=== PATIENT | male | born 1945 | race Caucasian/White ===

== ENCOUNTER 2024-04-16 10:58 | Emergency (ER) | payer MEDICARE, SELFPAY ==
[2024-04-16] VITALS (30 sets, daily range): BP systolic 104–176; BP diastolic 55–97; PULSE 48–89; RESP 14–26; TEMP 36.6; O2SAT 94–100
--- NOTE | 2024-04-16 | DI.RAD.S_ITS ---
PROCEDURE: XR HIP W PEL IF DONE LT 2V INDICATIONS: POST REDUCTION HIP DISLOCATION TECHNIQUE: AP pelvis with lateral view(s) of the left hip(s). COMPARISON: [facility], [place], XR HIP W PEL IF DONE LT 2V, 04/16/2024, 11:34. FINDINGS: Bones: Interval reduction previously dislocated left hip arthroplasty. There is good anatomic alignment. No visualized prosthetic or osseous fracture. Stable appearance of right hip arthroplasty. Soft tissues: The visualized bowel gas pattern is normal. No suspicious soft tissue calcifications. IMPRESSION: Interval reduction with good anatomic alignment of left hip arthroplasty. Dictated by: Yudelka Hough M.D. on 04/16/2024 at 13:59 Approved by: Yudelka Hough M.D. on 04/16/2024 at 14:00
--- NOTE | 2024-04-16 11:27 | DI.RAD.S_ITS ---
PROCEDURE: XR HIP W PEL IF DONE LT 2V INDICATIONS: hip dislocation TECHNIQUE: AP pelvis with lateral view(s) of the left hip(s). COMPARISON: None. FINDINGS: Bones: Lateral dislocation of left hip arthroplasty. No visualized hardware fracture. Right hip arthroplasty is intact. Soft tissues: The visualized bowel gas pattern is normal. No suspicious soft tissue calcifications. IMPRESSION: Lateral dislocation left hip arthroplasty Dictated by: Yudelka Hough M.D. on 04/16/2024 at 12:12 Approved by: Yudelka Hough M.D. on 04/16/2024 at 12:13
--- NOTE | 2024-04-16 12:00 | ED_ITS ---
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 Patient states his left hip he believes is dislocated. He has dislocated it 5 times total most recently was about 5 years ago. He did have a revision in the which seemed to help. His 1st dislocation was in the after his initial hip replacement. Patient states he was crawling on the ground to check the levels of a water tank when he states he just moved his leg in the wrong direction and felt it pop out. This was around 8:00 a.m.. He denies any other trauma or injury. He states he can move his foot and ankle without any issue. No numbness tingling or weakness. States feels very similar to priors. Patient states he is not on any daily medications. Denies any drug allergies. No tobacco, occasional alcohol, none recently, no recreational drugs. He has had procedural sedation in the past states he is tolerated it well. Patient denies any other symptoms or injuries. He was on [place] but lives in [place], [place]. He does not follow regularly with Orthopedic surgery anymore. Patient was trance referred via airlift from [place]. He states he received medications EN route in his comfortable at this time. States last intake was about 7 or 8:00 a.m. this morning had coffee and a roll. Related Data Allergies Allergy/AdvReac Type Severity Reaction Status Date / Time No Known Drug Allergies Allergy Verified 04/16/24 11:31 Review of Systems Review of Systems ROS Unobtainable: All systems reviewed & are unremarkable except as noted in HPI and below Patient History Social History Smoking Status: Never smoker Smoking Status: Never smoker alcohol intake frequency: holidays/special occasions only Substance Use Type: does not use Exam Narrative Exam Narrative: GENERAL: Alert and oriented x three, well-appearing elderly male in mild distress HEENT: Head normocephalic, atraumatic, EOMI, pupils reactive, face symmetric, moist mucous membranes NECK: Supple, full range of motion CARDIOVASCULAR: Regular rate and rhythm without murmurs, rubs or gallops. RESPIRATORY: Breath sounds equal bilaterally, no wheezes rales or rhonchi. No tachypnea or accessory muscle use. ABDOMEN: Soft, nontender. Normoactive bowel sounds all 4 quadrants. No guarding or rebound, rigidity, no mass : No CVA tenderness EXTREMITIES: Normal range of motion except at the left hip, patient is shortened and internally rotated, no other bony tenderness of the lower leg. Has normal dorsiflexion plantar flexion normal sensation throughout the left lower extremity. 2+ pulses bilateral lower extremities. Normal range of motion of bilateral upper extremities. Neurovascularly intact NEUROLOGICAL: Cranial nerves II through XII grossly intact. Moving all extremities. SKIN: Warm, dry, no petechiae, no rashes or lesions. Initial Vital Signs Initial Vital Signs: Vital Signs Pulse Rate 59 L 04/16/24 11:03 Pulse Oximetry 97 04/16/24 11:03 Procedures Orthopedic Joint Reduction Joint #1: Time Out Performed: Yes Side: left Joint Reduction Location: hip Analgesia: procedural sedation Technique used: other (hip flexion with internal rotation.) Post-reduction neuro exam: intact and no change Post-reduction vascular: intact and no change Post Reduction X-Ray Obtained: Yes Post Reduction X-Ray Results: reduced Splint Applied: Yes (knee immobilizer) Patient Tolerated Procedure: Well and No complications Procedural Sedation Consent signed: Yes Time out performed: Yes Indication: fracture/dislocation reduction ASA Class: II Mallampati Airway Classification: Class II Time of Last PO Intake: 08:00 Preparation: monitoring engineer applied, pulse oximeter, capnometry used, supplemental O2 applied, suction/airway equipment at bedside and IV secured IV Propofol dose (mg): 100 ED Sedation Level: Moderate (Concious) Patient Tolerated Procedure: Well Complications: hypoventilation Interventions: Airway repositioned and Assist by BVM Course Orders Ordered: ED Orders 04/16/24 11:27 XR hip w pel if done LT 2V Stat Discontinued Medications Propofol (Propofol 200 Mg/20 Ml Vial) 100 mg IV NOW ONE Stop: 04/16/24 12:22 Last Admin: 04/16/24 12:50 Dose: 100 mg Documented By: ALEX Vital Signs Vital signs: Vital Signs - 8 hr 04/16/24 11:03 04/16/24 11:04 04/16/24 11:04 Temperature Pulse Rate 59 L 59 L Respiratory Rate Blood Pressure 143/68 H Pulse Oximetry 97 96 Oxygen Delivery Method Oxygen Flow Rate 04/16/24 11:20 04/16/24 11:30 04/16/24 11:30 Temperature 97.8 F Pulse Rate 58 L 56 L Respiratory Rate 18 14 Blood Pressure 143/68 H 131/66 Pulse Oximetry 96 95 Oxygen Delivery Method Room Air Room Air Oxygen Flow Rate 04/16/24 12:00 04/16/24 12:22 04/16/24 12:22 Temperature Pulse Rate 60 55 L Respiratory Rate 20 18 Blood Pressure 130/65 Pulse Oximetry 96 97 Oxygen Delivery Method Oxygen Flow Rate 04/16/24 12:25 04/16/24 12:25 04/16/24 12:30 Temperature Pulse Rate 53 L Respiratory Rate 18 Blood Pressure 137/75 136/72 Pulse Oximetry 98 Oxygen Delivery Method Oxygen Flow Rate 04/16/24 12:30 04/16/24 12:35 04/16/24 12:35 Temperature Pulse Rate 48 L 53 L Respiratory Rate 23 17 Blood Pressure 130/70 Pulse Oximetry 98 99 Oxygen Delivery Method Oxygen Flow Rate 04/16/24 12:40 04/16/24 12:40 04/16/24 12:45 Temperature Pulse Rate 52 L 56 L Respiratory Rate 14 21 Blood Pressure 137/77 Pulse Oximetry 99 99 Oxygen Delivery Method Oxygen Flow Rate 04/16/24 12:45 04/16/24 12:50 04/16/24 12:50 Temperature Pulse Rate 58 L Respiratory Rate Blood Pressure 141/75 H 141/97 H Pulse Oximetry 99 Oxygen Delivery Method Nasal Cannula Oxygen Flow Rate 2 04/16/24 12:54 04/16/24 12:54 04/16/24 12:55 Temperature Pulse Rate 54 L Respiratory Rate 17 Blood Pressure 126/64 121/66 Pulse Oximetry 100 Oxygen Delivery Method Oxygen Flow Rate 04/16/24 12:55 04/16/24 13:00 04/16/24 13:00 Temperature Pulse Rate 56 L 54 L Respiratory Rate 18 17 Blood Pressure 115/57 L Pulse Oximetry 100 95 Oxygen Delivery Method Oxygen Flow Rate 04/16/24 13:02 04/16/24 13:05 04/16/24 13:05 Temperature Pulse Rate 62 59 L Respiratory Rate 16 21 Blood Pressure 115/60 Pulse Oximetry 97 Oxygen Delivery Method Oxygen Flow Rate 04/16/24 13:10 04/16/24 13:10 04/16/24 13:15 Temperature Pulse Rate 56 L 56 L Respiratory Rate 20 23 Blood Pressure 119/62 Pulse Oximetry 94 96 Oxygen Delivery Method Oxygen Flow Rate 04/16/24 13:15 04/16/24 13:20 04/16/24 13:20 Temperature Pulse Rate 55 L Respiratory Rate 26 H Blood Pressure 121/63 108/68 Pulse Oximetry 98 Oxygen Delivery Method Room Air Oxygen Flow Rate 04/16/24 13:25 04/16/24 13:25 04/16/24 13:30 Temperature Pulse Rate 54 L Respiratory Rate 21 Blood Pressure 114/64 133/59 L Pulse Oximetry 98 Oxygen Delivery Method Oxygen Flow Rate 04/16/24 13:30 04/16/24 13:35 04/16/24 13:35 Temperature Pulse Rate 54 L 53 L Respiratory Rate 21 23 Blood Pressure 115/56 L Pulse Oximetry 97 97 Oxygen Delivery Method Oxygen Flow Rate 04/16/24 13:41 04/16/24 13:41 04/16/24 13:45 Temperature Pulse Rate 51 L Respiratory Rate 19 Blood Pressure 119/57 L 104/61 Pulse Oximetry 98 Oxygen Delivery Method Oxygen Flow Rate 04/16/24 13:45 04/16/24 13:51 04/16/24 13:51 Temperature Pulse Rate 89 54 L Respiratory Rate 20 18 Blood Pressure 176/68 H Pulse Oximetry 94 98 Oxygen Delivery Method Oxygen Flow Rate 04/16/24 13:56 04/16/24 13:56 04/16/24 14:00 Temperature Pulse Rate 54 L Respiratory Rate 17 Blood Pressure 114/55 L 114/65 Pulse Oximetry 98 Oxygen Delivery Method Oxygen Flow Rate 04/16/24 14:00 04/16/24 14:05 04/16/24 14:05 Temperature Pulse Rate 54 L 52 L Respiratory Rate 19 14 Blood Pressure 116/62 Pulse Oximetry 96 96 Oxygen Delivery Method Oxygen Flow Rate 04/16/24 14:10 04/16/24 14:10 Temperature Pulse Rate 53 L Respiratory Rate 19 Blood Pressure 116/68 Pulse Oximetry 98 Oxygen Delivery Method Oxygen Flow Rate MDM - Extremity Injury (Lower) Imaging Data Extremity x-ray #1: Radiologist's Impression: [address] [address] XRay Report Signed Patient: Tyrone Moreland MR#: [id number] : 1945 Acct:[id number] Age/Sex: 78 / M Date of Service: 04/16/24 Loc: ED Accession Number: [id number] Procedure: XR hip w pel if done LT 2V Ordering Provider: Ai Gant D.O. PROCEDURE: XR HIP W PEL IF DONE LT 2V INDICATIONS: hip dislocation TECHNIQUE: AP pelvis with lateral view(s) of the left hip(s). COMPARISON: None. FINDINGS: Bones: Lateral dislocation of left hip arthroplasty. No visualized hardware fracture. Right hip arthroplasty is intact. Soft tissues: The visualized bowel gas pattern is normal. No suspicious soft tissue calcifications. IMPRESSION: Lateral dislocation left hip arthroplasty Dictated by: Yudelka Hough M.D. on 04/16/2024 at 12:12 Approved by: Yudelka Hough M.D. on 04/16/2024 at 12:13 post reduc: Radiologist's Impression: Close Hip X-Ray (Signed) Yudelka Hough - 04/16/24 Hip X-Ray (Signed) Yudelka Hough - 04/16/24 Launch?[place] [address] XRay Report Signed Patient: Tyrone Moreland MR#: [id number] : 1945 Acct:[id number] Age/Sex: 78 / M Date of Service: 04/16/24 Loc: ED Accession Number: [id number] Procedure: XR hip w pel if done LT 2V Ordering Provider: Ai Gant D.O. PROCEDURE: XR HIP W PEL IF DONE LT 2V INDICATIONS: POST REDUCTION HIP DISLOCATION TECHNIQUE: AP pelvis with lateral view(s) of the left hip(s). COMPARISON: [facility], XR HIP W PEL IF DONE LT 2V, 04/16/2024, 11:34. FINDINGS: Bones: Interval reduction previously dislocated left hip arthroplasty. There is good anatomic alignment. No visualized prosthetic or osseous fracture. Stable appearance of right hip arthroplasty. Soft tissues: The visualized bowel gas pattern is normal. No suspicious soft tissue calcifications. IMPRESSION: Interval reduction with good anatomic alignment of left hip arthroplasty. Dictated by: Yudelka Hough M.D. on 04/16/2024 at 13:59 Approved by: Yudelka Hough M.D. on 04/16/2024 at 14:00 [facility] Narrative Medical decision making narrative: 78-year-old male history of recurrent hip dislocation, patient was crawling on the ground when he states he moved wrong and dislocated. Last episode was about 5 years ago. Has had hip replacement with revision in the . Discussed with patient consent was obtained for attempted reduction. Patient appears and a lateral hip dislocation on imaging. Discussed risks versus benefits with family and patient. Patient tolerated procedure well did have a little bit of hypoventilation briefly and had BVM as well as jaw thrust. Patient awakened shortly thereafter. Repeat x-ray shows reduction. Patient's feels much better. Neurovascularly intact. Spoke with orthopedic surgery, Dr. Haro: But follow up in the next week with either Dr. Tapia or Dr. Crow. Hip precautions. Discussed with patient and family they feel comfortable with this plan he is much more comfortable after reduction. Patient feels much more comfortable. Defers anything for pain. Has ambulated to the bathroom without issue. Discharge Plan Departure Patient Disposition: Home Clinical Impression: Dislocation, hip closed Instructions: DI for Hip Dislocation -- Adult Activity Restrictions/Additional Instructions: Follow-up with orthopedic surgery, call Thursday to set up an appointment in the next week. They have offices here in [place] as well as [place]. Who going to want to avoid movements such as bending of the hip with flexion of the knee and/or rotation at the same time. Continue to wear your knee immobilizer until your follow-up with orthopedic surgery this will help prevent recurrent dislocation. Your doctor will give you safety precautions to keep your hip centred in its socket during the healing period. Be sure to follow these precautions. Keep your knees and toes pointed forward when you sit in a chair, walk, or stand. Do not sit with your legs crossed. Do not bend at the waist more than 90?. Be careful when leaning or when moving in bed to keep your legs as straight ahead as possible. If you have a hip brace, wear it as directed. Do not remove it unless your doctor says you can. If you remove the brace to shower, be extremely careful. Follow hip precautions to limit hip movement. Rest your hip as much as you can. You will need to change your activities to avoid movements that irritate the hip. If your hip is swollen, put ice or a cold pack on it for 10 to 20 minutes at a time. Try to do this every 1 to 2 hours for the next 3 days (when you are awake) or until the swelling goes down. Put a thin cloth between the ice and your skin. Please return for recurrent symptoms, increasing pain, numbness, tingling or weakness or other new or concerning changes. Referrals: Marquis Tapia MD [Physician] - Stand Alone Forms: Patient Portal/API
[2024-04-16] MEDS: propofoL 200 MG/20 ML VIAL 100 MG IV (12:50)
== END 2024-04-16 14:55 | disposition home or self-care (01) ==
PROVIDERS: Emergency Provider Emergency Medicine
DX: S73.005A Unspecified dislocation of left hip, initial encounter (principal); Z96.643 Presence of artificial hip joint, bilateral
CPT/HCPCS: 27265; 73502; 99284; 99285; J2704